=== PATIENT | female | born 1975 | race American Indian/Alaskan Native ===

== ENCOUNTER 2017-10-07 12:51 | Outpatient (CLI) | payer BC ==
--- NOTE | 2017-10-08 11:55 | Ultrasound Report ---
LEFT BREAST ULTRASOUND: 10/07/17 12:51:00 CLINICAL: This patient presented for biopsy of a mass recently identified at [facility]. COMPARISON: A recent [facility] left mammogram and left breast ultrasound. FINDINGS: Ultrasound of the left breast fail to demonstrate a mass as demonstrated on the outside ultrasound. Ultrasound of the left nipple demonstrates a normal nipple with posterior shadowing which is identical to the appearance of the nipple on the right side. IMPRESSION: Negative left breast ultrasound with no lesion to biopsy. Recommend six month followup left breast ultrasound. BI-RADS 3 - - Probably Benign
== END 2017-10-07 12:52 | disposition home or self-care (01) ==
LOC: SPVWC 12:51
PROVIDERS: ATTEND Surgery
DX: N63.20 Unspecified lump in the left breast, unspecified quadrant (principal)